=== PATIENT | female | born 1955 | race Caucasian/White ===

== ENCOUNTER 2019-03-12 11:07 | Day surgery (SDC) | payer MEDICAID ==
[2019-03-09 13:31] LABS: BASOPHILS # (AUTO) 0.1 X10'3 (0-0.2); EOSINOPHILS # (AUTO) 0.1 X10'3 (0-0.9); EOSINOPHILS % (AUTO) 1.1 % (0-6); LYMPHOCYTES # (AUTO) 2.5 X10'3 (1.1-4.8); LYMPHOCYTES % (AUTO) 39.4 % (21-51); MEAN CORPUSCULAR HEMOGLOBIN 33.1 PG (27.0-31.0); MEAN CORPUSCULAR HGB CONC 34.5 g/dL (33.0-36.5); MEAN CORPUSCULAR VOLUME 95.7 FL (78-98); MEAN PLATELET VOLUME 8.3 FL (7.4-10.4); MONOCYTES # (AUTO) 0.4 X10'3 (0-0.9); MONOCYTES % (AUTO) 6.9 % (2-12); NEUTROPHILS # (AUTO) 3.3 X10'3 (1.8-7.7); NEUTROPHILS % (AUTO) 51.6 % (42-75); PRE OP HEMATOCRIT 43.8 % (35.0-45.0); PRE OP HEMOGLOBIN 15.1 g/dL (12.0-16.0); PRE OP PLATELET COUNT 241 X10'3 (140-440); RED BLOOD COUNT 4.58 X10'6 (4.20-5.60); RED CELL DISTRIBUTION WIDTH 12.7 % (11.5-14.5)
[2019-03-09 13:41] LABS: PRE OP INR 0.9 INR; PRE OP PROTIME 9.9 SECONDS (9.0-12.0)
[2019-03-09 13:46] LABS: ALBUMIN 4.6 G/DL (3.4-5.0); ALKALINE PHOSPHATASE 76 IU/L (46-116); BLOOD UREA NITROGEN 11 MG/DL (7-18); BUN/CREATININE RATIO 13.4 (6.6-38.0); CALCIUM 9.3 MG/DL (8.5-10.1); CHLORIDE 99 MMOL/L (99-107); CREATININE 0.82 MG/DL (0.40-0.90); PRE OP ALT 22 U/L (30-65); PRE OP ANION GAP 11 (8-16); PRE OP AST 22 U/L (10-37); PRE OP BILIRUB, TOTAL 0.3 MG/DL (0.0-1.0); PRE OP GLUCOSE 70 MG/DL (70-104); PRE OP POTASSIUM 4.9 MMOL/L (3.4-5.1); PRE OP SODIUM 137 MMOL/L (135-145); TOTAL CARBON DIOXIDE 26.9 MMOL/L (24-32); eGFR 70 ML/MIN
[2019-03-12] VITALS (19 sets, daily range): BP systolic 83–137; BP diastolic 50–86
[~2019-03-12] VITALS: Ht 172.7 cm; Wt 57.0 kg
[~2019-03-12 11:07] MED LIST: ANAS1TAB10 PO; BISO5TAB PO; DOCUMENT DATE & TIME OF BETA-BLOCKER PO ONE; FLEC100T2 PO; ceFOXitin 2 GM ADDvantage bag 100 ML IV ONE; famotidine 20mg tablet PO ONE; ringers solution, lacted 1,000 ML IV SCH
[2019-03-12] MEDS ORDERED: LIDOcaine 1% 30ml preserv. free vial ONE (13:02)
[2019-03-12] MEDS ORDERED: ceFAZolin 1000mg inj ONE (13:02)
[2019-03-12] MEDS ORDERED: morphine 10mg/ml inj. ONE (13:02)
[2019-03-12] MEDS ORDERED: clindamycin phosphate 40gm vag cream ONE (13:02)
[2019-03-12] MEDS ORDERED: BUPIVAcaine/PF 2.5 mg/ml (0.25%) 30ml vial ONE (13:02)
[2019-03-12] MEDS ORDERED: vasoPRESSIN 20 units/ml inj. ONE (13:03)
[2019-03-12] MEDS ORDERED: ringers solution, lacted 1,000 ML IV SCH ×3 (13:11→17:38)
[2019-03-12] MEDS ORDERED: ondansetron/PF 4mg/2ml inj IV PRN ×3 (13:15→17:40)
[2019-03-12] MEDS ORDERED: fentaNYL/PF 50MCG/1 ML 2ML syringe IV PRN ×2 (13:15)
[2019-03-12] MEDS ORDERED: labetalol 20mg/4ml (5mg/ml) syringe IV PRN (13:15)
[2019-03-12] MEDS ORDERED: hydrALAZINE 20mg/ml inj. IV PRN (13:15)
[2019-03-12] MEDS ORDERED: morphine 4 MG/ML inj SYRINge IV PRN ×4 (13:15→14:35)
[2019-03-12] MEDS ORDERED: fentaNYL/PF 50MCG/1 ML 2ML syringe ONE (13:22)
[2019-03-12] MEDS ORDERED: midazolam 2 mg/2 ml injection ONE ×2 (13:22→14:43)
[2019-03-12] MEDS ORDERED: neostigmine methylsulfate 1 MG/ML 10ml vial ONE (13:23)
[2019-03-12] MEDS ORDERED: LIDOcaine 2% (20mg/ml) 5ml vial ONE ×2 (13:23→14:24)
[2019-03-12] MEDS ORDERED: dexamethasone sod phosphate 4mg/ml inj. ONE (13:23)
[2019-03-12] MEDS ORDERED: metoprolol tartrate 1mg/ml inj IV ONE (13:24)
[2019-03-12] MEDS ORDERED: ondansetron/PF 4mg/2ml inj ONE ×2 (13:24→15:27)
[2019-03-12] MEDS ORDERED: fluoroscein sod 10% (100mg/ml) 5ml vial ONE ×2 (13:24→17:12)
[2019-03-12] MEDS ORDERED: propofol inj 20 ML IV ONE ×2 (13:24→14:24)
[2019-03-12] MEDS ORDERED: glycopyrrolate 0.2mg/ml inj ONE (13:24)
[2019-03-12] MEDS ORDERED: rocuronium 10mg/ml inj IV ONE (14:24)
[2019-03-12] MEDS ORDERED: meperidine/PF 25mg/ml syringe IV PRN ×2 (14:35)
[2019-03-12] MEDS ORDERED: proCHLORperazine 10 MG/2 ml inj IV PRN (14:35)
[2019-03-12] MEDS ORDERED: fentaNYL /PF 50mcg/ml 5ml ampule ONE (14:43)
[2019-03-12 15:41] LABS: ISTAT CREATININE 0.7 mg/dL (0.6-1.1); ISTAT HGB 12.9 g/dl (12.0-16.0); ISTAT IONIZED CALCIUM 1.3 mmol/L (1.03-1.32); POC BUN/CREATININE RATIO 7.1 (6.6-38.0)
[2019-03-12] MEDS ORDERED: CADD PCA waste documentation MC PRN (17:40)
[2019-03-12] MEDS ORDERED: magnesium hydroxide 30ml (MOM) UD suspension PO PRN (17:40)
[2019-03-12] MEDS ORDERED: normal saline 500ml IV soln 500 ML IV PRN (17:40)
[2019-03-12] MEDS ORDERED: HYDROcodone/acetaminophen 5mg/325mg tablet PO PRN ×2 (17:40)
[2019-03-12] MEDS ORDERED: naloxone 0.4 mg/ml inj IV PRN (17:40)
[2019-03-12] MEDS ORDERED: diphenhydrAMINE 50 mg/ml inj IV PRN (17:40)
[2019-03-12] MEDS ORDERED: temazepam 15mg capsule PO PRN (17:40)
--- NOTE | 2019-03-12 17:45 | NUR ---
Received from OR via BED [g PCS.BED], accompanied by Anesthesiologist DR DOWNS [] and report given by Anesthesiolgist. PATIENT A&OX4, DENIES PAIN, V/S WNL, NEUROVASCULAR CHECKS INTACT, 20G RUE, 4 BANDAIDS TO ABDOMEN AND VAG PACKING AND PERIPAD WITH SCANT DRAINAGE. F/C DRAINING BRIGHT YELLOW CLEAR YELLOW URINE, SCD ON
[2019-03-12] MEDS: ketorolac trometh. 30mg/ml inj. IV PRN (17:53)
[2019-03-12] MEDS: meperidine/PF 25mg/ml syringe IV PRN ×2 (17:53→18:07)
[2019-03-12] MEDS: simethicone 80mg chew tab PO SCH (18:00)
--- NOTE | 2019-03-12 18:39 | NUR ---
painter helper sign bolus given prn pain .5mg
--- NOTE | 2019-03-12 18:45 | NUR ---
PATIENT A&OX4, DENIES PAIN, V/S WNL, NEUROVASCULAR CHECKS INTACT, 20G RUE, 4 BANDAIDS TO ABDOMEN AND VAG PACKING AND PERIPAD WITH SCANT DRAINAGE. F/C DRAINING BRIGHT YELLOW CLEAR YELLOW URINE, SCD ON, FABRIC INSPECTOR STARTED AND PATIENT GIVEN BOLUS AND INSTRUCTIONS GIVEN BUT SHE WILL NEED REINFORCMENT. PATIENT TAKEN TO 344 WITH ALL BELONGINGS AND HOOKED UP TO [facility] IN ROOM AND REPORT GIVEN TO LIME MIXER TENDER WHO HAS TAKEN OVER PATIENT CARE
[2019-03-12] MEDS: HYDROmorphone/NS 1 mg/ml CADD 50 ML IV SCH ×4 (18:57→23:00)
--- NOTE | 2019-03-12 18:57 | NUR ---
Patient in room . I have received report from sales order clerk and had the opportunity to ask questions and assume patient care. Pt arrived on the unit with LR running @100 and Dilaudid CADD. O2 sats were running in the 80's, placed pt on 2L via N/C. Educated on use of CADD for pain control. No signs of distress, will continue to monitor
[2019-03-12] MEDS ORDERED: HYDROmorphone/NS 1 mg/ml CADD 50 ML IV SCH (19:00)
[2019-03-12] MEDS ORDERED: ringers solution, lactated 500ml IV solution IV SCH (23:35)
[2019-03-12] MEDS: ringers solution, lacted 1,000 ML IV SCH (23:57)
[2019-03-13] MEDS: HYDROmorphone/NS 1 mg/ml CADD 50 ML IV SCH ×6 (01:00→11:00)
[2019-03-13 04:00] VITALS: BP 82/41
[2019-03-13 05:10] LABS: BASOPHILS % (AUTO) 0.3 % (0-1); EOSINOPHILS % (AUTO) 0 % (0-6); HEMATOCRIT 34.7 % (35.0-45.0); HEMOGLOBIN 11.9 g/dl (12.0-16.0); LYMPHOCYTES # (AUTO) 1.1 X10'3 (1.1-4.8); MEAN CORPUSCULAR HEMOGLOBIN 33.3 PG (27.0-31.0); MEAN CORPUSCULAR HGB CONC 34.2 g/dL (33.0-36.5); MEAN CORPUSCULAR VOLUME 97.3 FL (78-98); MONOCYTES # (AUTO) 0.5 X10'3 (0-0.9); MONOCYTES % (AUTO) 6.2 % (2-12); NEUTROPHILS # (AUTO) 6.2 X10'3 (1.8-7.7); NEUTROPHILS % (AUTO) 79.5 % (42-75); PLATELET COUNT 148 X10'3 (140-440); RED BLOOD COUNT 3.56 X10'6 (4.20-5.60); RED CELL DISTRIBUTION WIDTH 12.7 % (11.5-14.5); WHITE BLOOD COUNT 7.8 X10'3 (4.5-11.0)
--- NOTE | 2019-03-13 06:24 | NUR ---
Problems reprioritized. Patient report given, questions answered & plan of care reviewed with Claire ROGERS.
[2019-03-13 07:20] VITALS: BP 98/30
[2019-03-13] MEDS: ringers solution, lacted 1,000 ML IV SCH ×2 (07:27→15:50)
[2019-03-13] MEDS ORDERED: atenolol 25mg tablet PO SCH (08:00)
[2019-03-13] MEDS ORDERED: flecainide 50mg tablet PO SCH (08:00)
[2019-03-13] MEDS: simethicone 80mg chew tab PO SCH ×3 (08:02→17:08)
--- NOTE | 2019-03-13 08:20 | NUR ---
Page sent to regarding PRN rx for headache. PAGER ID: [phone] MESSAGE: re [id number] ElmerJohnny [email or web address]. patient c/o headache and is requesting Tylenol. thank you, Jenna,[phone] Addendum: 03/13/19 at 1746 by Claire Walker RN Charted on wrong patient. Please disregard note. thank you
[2019-03-13] MEDS ORDERED: MESSAGE TO NURSING PO NR (10:00)
[2019-03-13 11:15] VITALS: BP 100/36
[2019-03-13] MEDS: ketorolac trometh. 30mg/ml inj. IV PRN (12:30)
--- NOTE | 2019-03-13 17:41 | NUR ---
Patient discharged home with stable and appropriate. IV removed. All belongings taken from room. Discharge instructions and medications given to patient preop by Dr Murillo.
== END 2019-03-13 17:45 | disposition home or self-care (01) ==
LOC: PAS 11:07 → SUR 3N 17:44 → PAS 03-13 17:45
PROVIDERS: ATTEND Specialist
DX: N81.4 Uterovaginal prolapse, unspecified (principal); Z85.3 Personal history of malignant neoplasm of breast; Z98.890 Other specified postprocedural states; Z79.899 Other long term (current) drug therapy; Z87.891 Personal history of nicotine dependence; Z80.3 Family history of malignant neoplasm of breast; Z83.3 Family history of diabetes mellitus; Z80.49 Family history of malignant neoplasm of other genital organs
CPT/HCPCS: 36415; 57240; 57425; 58552; 80047; 80053; 82948; 85025; 85610; 85730; 86885; 86900; 86901; J0690; J0694; J1100; J1170; J1885; J2001; J2175; J2250; J2270; J2405; J2704; J2710; J3010; J3490; J7120; A4215; A4314; A4355; A4618; A6250; A7000; G0378